=== PATIENT | female | born 1950 | race Caucasian/White ===

== ENCOUNTER 2018-08-24 16:46 | Emergency (ER) | payer MEDICARE, OTHER ==
[2018-08-24 17:11] LABS: MEAN CORPUSCULAR HEMOGLOBIN 32.8 pg (28.0-34.0)
[2018-08-24 17:12] LABS: BASOPHILS % 0.5 % (0.0-1.5); MONOCYTES % 8.9 % (0.0-11.0); NEUTROPHILS # 2.8 # k/uL (1.4-7.7)
[2018-08-24 17:15] VITALS: BP 151/103
[2018-08-24 17:23] LABS: eGFR (Non-African) > 60
--- NOTE | 2018-08-24 17:31 | ED Physician Documentation ---
Neuro Symptoms - HISTORIAN Historian: patient, spouse - HPI Stated Complaint: facial droop Chief Complaint: Neurological Symptoms Onset: hours (0700) Last known Well Date: 08/24/18 Last Known Well Time: 07:00 Last known Well Code/Unknown Code: Known Further Comments: yes (68 year old female patient brought in by for evaluation of facial droop and slurred speech. states he came home at 1640 and noticed changes in the patient's speech and right mouth droop. Patient c/o right sided facial numbness and difficulty closing her eyes. Patient reports this morning at 0700 she noticed her lips were slightly numb, she went to [employer] study at 1200. Her friends noticed the facial droop, patient reports "my clinical laboratory director were equal".) - CHARACTERS OF DEFICIT New Weakness: Rt facial Altered Sensation: none Vision Problems: No Impaired Speech/ Swallowing: Yes (slurred) Decreased Ability: none Cognition is Usually: alert, oriented x3 Gait is Usually: walks w/o assistance Associated Symptoms: none - ROS MENTAL STATUS: none CVS/Resp Upper Extremity Problem: none GI/ DYSPNEA: none MS/SKIN/LYMPH: none Neuro/Psych: none - PAST HX Past History: none Surgeries/Procedures: none Allergies/Adverse Reactions: Allergies Allergy/AdvReac Type Severity Reaction Status Date / Time Tetanus Vaccines and Toxoid Allergy Verified 08/24/18 17:16 Home Medications: Ambulatory Orders Medication Instructions Recorded Ascorbic Acid [Vitamin C] 1 cap PO DAILY 08/24/18 Cyanocobalamin (Vitamin B-12) 1 cap PO DAILY 08/24/18 [Vitamin B-12] Magnesium Oxide [Magnesium] 1 tab PO DAILY 08/24/18 Potassium 1 tab PO DAILY 08/24/18 - FAMILY HX Family History: denies: none - SOCIAL HX Smoking History: cigarettes - VITAL SIGNS Vital Signs: Vital Signs Temp Pulse Resp BP Pulse Ox 97.2 F L 76 16 151/103 97 08/24/18 16:46 08/24/18 16:46 08/24/18 16:46 08/24/18 16:46 08/24/18 16:46 - REVIEWED ASSESSMENTS Nursing Assessment Reviewed: Yes Vitals Reviewed: Yes Progress - Progress Progress: CT head - negative. NIH 1 for facial droop, speech is slurred but patient is able to complete all NIH speech evaluations. Recommended transfer to Stroke center for CTA head and neck. and patient prefer [facility]. 1725 Call to [facility] [address] Scott ED Results Lab/Radiology - Lab Results Lab Results: Lab Results 08/24/18 08/24/18 17:05 17:05 WBC 6.60 K/ul K/ul (4.00-12.00) RBC 4.49 M/ul M/ul (3.90-5.20) Hgb 14.7 g/dL g/dL (11.5-16.0) Hct 42.9 % % (34.5-46.5) MCV 95.0 fl fl (80.0-100.0) MCH 32.8 pg pg (28.0-34.0) MCHC 34.3 g/dL g/dL (30.0-36.0) RDW 12.3 % % (11.3-14.3) Plt Count 235 K/mm3 K/mm3 (130-400) Neut % (Auto) 42.5 % % (39.0-79.0) Lymph % (Auto) 44.1 % % (16.0-50.0) [place] % (Auto) 8.9 % % (0.0-11.0) Eos % (Auto) 4.0 % % (0.0-6.8) Baso % (Auto) 0.5 % % (0.0-1.5) Neut # (Auto) 2.8 # k/uL # k/uL (1.4-7.7) Lymph # (Auto) 2.9 # k/uL # k/uL (0.6-4.0) [place] # (Auto) 0.6 # k/uL # k/uL (0.0-0.9) Eos # (Auto) 0.3 # k/uL # k/uL (0.0-0.6) Baso # (Auto) 0.0 # k/uL # k/uL (0.0-0.5) Sodium 137 mmol/L mmol/L (137-145) Potassium 3.8 mmol/L mmol/L (3.5-5.1) Chloride 103 mmol/L mmol/L (98-107) Carbon Dioxide 29 mmol/L mmol/L (22-30) BUN 15 mg/dL mg/dL (7-17) Creatinine 0.82 mg/dL mg/dL (0.52-1.04) Estimated Creat Clear 76 Est GFR ( Amer) > 60 (60 - ) Est GFR (Non-Af Amer) > 60 (60 - ) Glucose 80 mg/dL mg/dL (74-106) Calcium 9.2 mg/dL mg/dL (8.4-10.2) Total Bilirubin 0.4 mg/dL mg/dL (0.2-1.3) AST 59 U/L H U/L (15-46) ALT 53 U/L H U/L (0-35) Alkaline Phosphatase 93 U/L U/L (38-126) Total Protein 6.8 g/dL g/dL (6.3-8.2) Albumin 3.9 g/dL g/dL (3.5-5.0) - Radiology Radiology Impressions: CHEST 1VIEW HISTORY: COUGH, HYPOXIA. FINDINGS: Erect AP portable chest x-ray dated August 24, 2018 at 1650 demonstrates the lungs to be clear focal infiltrates and expanded bilaterally. Cardiac silhouette and bony thorax are unremarkable. IMPRESSION: No active intrathoracic disease seen. Electronically signed on August 24, 2018 5:43:09 PM CDT by: Nick Santos EXAMINATION: CT BRAIN W/O CONTRAST HISTORY: facial droop TECHNIQUE: CT of the head was performed without contrast according to standard protocol. COMPARISON: None FINDINGS: No acute intra- or extra-axial fluid collections are identified. The ventricles are of normal size, shape, and morphology. The basilar cisterns are patent. No mass effect or midline shift is seen. The teran-white matter differentiation is normal. Other than mild paranasal sinus disease, the visible portions of the orbits, paranasal sinuses, and mastoids appear normal. No acute fracture is identified. IMPRESSION: 1. No acute intracranial hemorrhage. Electronically signed on August 24, 2018 4:58:52 PM CDT by: Anthony Zarate - Orders Orders: ED Orders Category Date Time Status Continuous EKG monitoring Q30M Care 08/24/18 16:48 Active Continuous Pulse Oximetry Q30M Care 08/24/18 16:[address] IV Lock 1T Care 08/24/18 16:48 Active CHEST 1VIEW [RAD] Stat Exams 08/24/18 16:[address] BRAIN W/O CONTRAST Stat Exams 08/24/18 Ordered CBC/PLATELET/DIFF Stat Lab 08/24/18 17:05 Completed CMP Stat Lab 08/24/18 17:05 Completed UA W/MICRO IF INDICATED Stat Lab 08/24/18 17:26 Ordered Neuro Symptoms Physical Exam - Physical Exam General Appearance: mild distress HEENT: no apparent trauma, EOM's intact, PERRL, pharynx nml, airway intact, oral exam nml Neuro/Psych: alert, oriented x3, mood/affect nml, speech abnml (slurred), other (right sided facial droop) Cerebellar: nml as tested, nml gait Pheripheral Exam: motor nml, sensation nml, reflexes nml Neck: normal inspection, thyroid normal Respiratory: no resp distress, chest non-tender, breath sounds normal CVS: reg rate & rhythm, heart sounds normal, equal pulses, no murmur, no gallop, PMI nml, no JVD, no friction rub, 24 Abdomen: non-tender, no distention, no organomegaly Skin: color nml, no rash, nml palp., dry Extremities: non-tender, normal range of motion, no evidence of injury, no edema, J, [employer] MEDICAL ASSISTANT Discharge Clincal Impression: rule out stroke, Facial droop, Slurred speech Referrals: Primary Doctor,No [Primary Care Provider] - 2 Days Condition: Stable Disposition: 02 XFER [id number]-TRM HOSP Decision to Admit: NO Decision Time: 17:46
[2018-08-24 18:15] LABS: APPEARANCE,URINE CLEAR (CLEAR); COLOR,URINE YELLOW (YELLOW); OCCULT BLOOD,URINE NEGATIVE (NEGATIVE); UROBILINOGEN URINE 0.2 Eu (0.2-1.0)
--- NOTE | 2018-08-24 18:17 | Diagnostic Imaging Report ---
RYAN GOMES (MAILING SPECIALIST) - ER [facility] [address] [facility] [address] [place], [place]. [address] Report Submission Date: August 24, 2018 4:58:52 PM CDT Patient Study Name: LOUIS SANCHEZ Date: August 24, 2018 4:46:42 PM CDT Modality Type: CT\SR Gender: F Description: CT BRAIN W/O CONTRAST : 54 Institution: [facility] Physician: RYAN GOMES (MAILING SPECIALIST) - ER EXAMINATION: CT BRAIN W/O CONTRAST HISTORY: facial droop TECHNIQUE: CT of the head was performed without contrast according to standard protocol. COMPARISON: None FINDINGS: No acute intra- or extra-axial fluid collections are identified. The ventricles are of normal size, shape, and morphology. The basilar cisterns are patent. No mass effect or midline shift is seen. The teran-white matter differentiation is normal. Other than mild paranasal sinus disease, the visible portions of the orbits, paranasal sinuses, and mastoids appear normal. No acute fracture is identified. IMPRESSION: 1. No acute intracranial hemorrhage. Electronically signed on August 24, 2018 4:58:52 PM CDT by: Anthony ROWE
--- NOTE | 2018-08-24 18:18 | Diagnostic Imaging Report ---
RYAN GOMES (GOVERNMENT CONTRACTS MANAGER) - ER [facility] [address] [facility] [address] [place], [place]. [address] Report Submission Date: August 24, 2018 5:43:09 PM CDT Patient Study Name: LOUIS SANCHEZ Date: August 24, 2018 4:50:37 PM CDT Modality Type: DX Gender: F Description: CHEST 1VIEW : 54 Institution: [facility] Physician: RYAN GOMES (GOVERNMENT CONTRACTS MANAGER) - ER CHEST 1VIEW HISTORY: COUGH, HYPOXIA. FINDINGS: Erect AP portable chest x-ray dated August 24, 2018 at 1650 demonstrates the lungs to be clear focal infiltrates and expanded bilaterally. Cardiac silhouette and bony thorax are unremarkable. IMPRESSION: No active intrathoracic disease seen. Electronically signed on August 24, 2018 5:43:09 PM CDT by: Nick ROWE
== END 2018-08-24 18:03 | disposition short-term general hospital (02) ==
LOC: ED 16:46
DX: R29.810 Facial weakness (principal); R47.81 Slurred speech
CPT/HCPCS: 36415; 70450; 71045; 80053; 81002; 85025; 99285; S1016